=== PATIENT | male | born 1990 | race Caucasian/White ===

== ENCOUNTER 2016-05-13 16:31 | Emergency (ER) | payer MEDICAID ==
[2016-05-13] MEDS ORDERED: DEXAMETHASONE 10 MG/ML VIAL PO STA (16:53)
[2016-05-13] MEDS ORDERED: CHERRY SYRUP 10 ML UDC PO ONE (17:06)
[2016-05-13] MEDS ORDERED: DEXAMETHASONE 10 MG/ML VIAL ONE (17:06)
[2016-05-13] MEDS ORDERED: ACETAMINOPHEN 325 MG TABLET PO ONE (17:55)
== END 2016-05-13 17:54 | disposition home or self-care (01) ==
DX: J02.9 Acute pharyngitis, unspecified (principal); F17.200 Nicotine dependence, unspecified, uncomplicated
CPT/HCPCS: 87070; 87430; 99283; A9270

== ENCOUNTER 2016-11-10 11:16 | Outpatient (CLI) | payer SELFPAY ==
[2016-11-10 18:41] LABS: BASOPHILS % (AUTO) 0.5 %; EOSINOPHILS # (AUTO) 0.2 10^3/uL (0.0-0.7); EOSINOPHILS % (AUTO) 2.7 %; HCT - HEMATOCRIT 47.1 % (42.0-52.0); HGB - HEMOGLOBIN 15.5 g/dL (14.0-18.0); LYMPHOCYTES # (AUTO) 3.2 10^3/uL (1.5-3.5); MEAN CORPUSCULAR HEMOGLOBIN 29.5 pg (27.0-31.0); MEAN CORPUSCULAR HGB CONC 32.8 g/dL (32.0-36.0); MEAN CORPUSCULAR VOLUME 89.8 fL (80.0-94.0); MEAN PLATELET VOLUME 8.3 fL (7.4-11.4); MONOCYTES # (AUTO) 0.7 10^3/uL (0.0-1.0); MONOCYTES % (AUTO) 7.9 %; NEUTROPHILS # (AUTO) 4.1 10^3/uL (1.5-6.6); NEUTROPHILS % (AUTO) 49.9 %; NUCLEATED RED BLOOD CELLS AUTO 0.1 /100WBC; RED BLOOD COUNT 5.24 10^6/uL (4.70-6.10); UNCORRECTED WHITE BLOOD COUNT 8.3 x10^3/uL; WHITE BLOOD COUNT 8.3 x10^3/uL (4.8-10.8)
[2016-11-10 18:53] LABS: ALBUMIN/GLOBULIN RATIO 1.5 (1.0-2.2); BILIRUBIN,TOTAL 0.6 mg/dL (0.2-1.0); BUN - BLOOD UREA NITROGEN 13 mg/dL (6-20); CALCIUM 9.6 mg/dL (8.5-10.3); CARBON DIOXIDE - CO2 28 mmol/L (21-32); CHLORIDE 100 mmol/L (101-111); CHOL/HDL RATIO 3.6 (<5.0); CHOLESTEROL 173 mg/dL; CREATININE 0.9 mg/dL (0.6-1.2); GFR - MDRD 104 (>89); GLUCOSE 100 mg/dL (70-100); HDL CHOLESTEROL 48 mg/dL; LDL/HDL RATIO 2.4 (<3.6); POTASSIUM 3.7 mmol/L (3.5-5.0); SODIUM 137 mmol/L (135-145); TOTAL PROTEIN 7.9 g/dL (6.7-8.2); TRIGLYCERIDES 59 mg/dL; VLDL CHOLESTEROL 12 mg/dL
== END 2016-11-10 11:17 | disposition home or self-care (01) ==
LOC: LAB.N 11:16
PROVIDERS: ATTEND Physician Assistant
DX: F41.8 Other specified anxiety disorders (principal)
CPT/HCPCS: 36415; 80053; 80061; 84443; 85025

== ENCOUNTER 2017-02-12 16:51 | Emergency (ER) | payer BC ==
--- NOTE | 2017-02-12 16:55 | ED Physician Documentation ---
PD HPI HEENT - Stated complaint Stated Complaint: NAUSEA SORE THROAT - History obtained from History obtained from: Patient - History of Present Illness Timing - onset: How many weeks ago (2) Timing - duration: Weeks (2) Timing - details: Gradual onset, Still present (had had fevers, sore throat and swollen glands 2 weeks ago, lasted few days, and then improving but continues with hoarse voice and some sore throat. Hoarseness increasing the past 2-3 days. No fevers currently.) Location: Throat Improves: No: Medication (not with Tylenol or Ibuprofen) Worsens: Swalllowing Associated symptoms: Cough (mild). No: Fever, Unable to swallow (but hurts with swallowing), Facial swelling Recently seen: Not recently seen Review of Systems Constitutional: reports: Fever (2 weeks ago, not currently). denies: Chills, Myalgias Nose: denies: Rhinorrhea / runny nose, Congestion Throat: reports: Sore throat Respiratory: reports: Cough. denies: Dyspnea, Wheezing GI: reports: Nausea. denies: Abdominal Pain, Vomiting, Diarrhea Skin: denies: Rash, Lesions PD PAST MEDICAL HISTORY - Past Medical History Cardiovascular: None Respiratory: None Neuro: None Endocrine/Autoimmune: None GI: None : None HEENT: None Psych: Depression, Anxiety, Panic attacks Musculoskeletal: None Derm: None - Past Surgical History Past Surgical History: No General: Other - Present Medications Home Medications: Ambulatory Orders Medication Instructions Recorded Confirmed Propranolol [Inderal] 40 mg PO DAILY 06/25/15 02/12/17 hydrOXYzine PAMOATE [Vistaril] 50 mg PO DAILY 12/31/15 02/12/17 Cephalexin [Keflex] 500 mg PO QID #24 capsule 02/12/17 Citalopram [CeleXA] 02/12/17 Dexamethasone [Decadron] 4 mg PO DAILY #5 tablet 02/12/17 Ondansetron HCl [Zofran] 4 mg PO Q6H PRN #20 tablet 02/12/17 - Allergies Allergies/Adverse Reactions: Allergies Allergy/AdvReac Type Severity Reaction Status Date / Time gluten Allergy Unknown Verified 05/13/16 16:36 dairy Allergy Unknown Uncoded 05/13/16 16:36 - Social History Does the pt smoke?: Yes Smoking Status: Current some day smoker Does the pt drink ETOH?: Yes Does the pt have substance abuse?: No - Immunizations Immunizations are current?: Yes - POLST Patient has POLST: No PD ED PE NORMAL - Vitals Vital signs reviewed: Yes - General General: Alert and oriented X 3, Well developed/nourished - HEENT HEENT: Ears normal, Moist mucous membranes, Pharynx benign - Neck Neck: Supple, no meningeal sign, No adenopathy - Cardiac Cardiac: RRR, No murmur - Respiratory Respiratory: Clear bilaterally - Derm Derm: Normal color, Warm and dry, No rash, Other - Extremities Extremities: No tenderness to palpate, No edema - Neuro Neuro: Alert and oriented X 3, No motor deficit Results - Vitals Vitals: Oxygen O2 Source Room air PD MEDICAL DECISION MAKING - ED course Complexity details: considered differential (hoarse voice but has resolved other URI symptoms over a week ago. Treat with steroids/inhaler, but would have him see ENT if persistent symptoms for potential scope to ensure no lesions.), d /w patient Departure - Departure Disposition: 01 Home, Self Care Clinical Impression: Laryngitis Condition: Stable Record reviewed to determine appropriate education?: Yes Instructions: ED Laryngitis Follow-Up: [facility] [place] [Provider Group] Prescriptions: Cephalexin [Keflex] 500 mg PO QID #24 capsule Dexamethasone [Decadron] 4 mg PO DAILY #5 tablet Ondansetron HCl [Zofran] 4 mg PO Q6H PRN #20 tablet PRN Reason: Nausea / Vomiting Comments: Drink lots of fluids. Tylenol or ibuprofen if needed for fevers or pains. Decadron daily for 5 more days for inflammation/swelling. Cephalexin as directed for concern of bacterial infection given your duration of symptoms. Ondansetron if needed for nausea. Recheck if not improving over the next 3-4 days. If persistent symptoms then follow-up with your primary care or ENT in [place] with the possible thought of scoping the throat to look what it looks like down there. Discharge Date/Time: 02/12/17 17:59
[2017-02-12] MEDS ORDERED: ONDANSETRON ODT 4 MG TABLET TL STA (17:26)
[2017-02-12] MEDS ORDERED: cephALEXin 250 MG CAPSULE PO STA (17:26)
[2017-02-12] MEDS ORDERED: DEXAMETHASONE 10 MG/ML VIAL PO STA (17:26)
[2017-02-12] MEDS ORDERED: ACETAMINOPHEN 325 MG TABLET PO STA (17:27)
[2017-02-12] MEDS ORDERED: ACETAMINOPHEN 325 MG TABLET PO ONE (17:48)
[2017-02-12] MEDS ORDERED: CHERRY SYRUP 10 ML UDC PO ONE (17:48)
[2017-02-12] MEDS ORDERED: DEXAMETHASONE 10 MG/ML VIAL ONE (17:48)
[2017-02-12] MEDS ORDERED: cephALEXin 250 MG CAPSULE PO ONE (17:48)
[2017-02-12] MEDS ORDERED: ONDANSETRON ODT 4 MG TABLET ONE (17:48)
[2017-02-12 17:59] VITALS: BP 126/73
== END 2017-02-12 17:59 | disposition home or self-care (01) ==
LOC: ED 16:51
DX: J04.0 Acute laryngitis (principal); F17.200 Nicotine dependence, unspecified, uncomplicated
CPT/HCPCS: 99283; A9270; Q0162

== ENCOUNTER 2017-04-11 09:21 | Emergency (ER) | payer OTHER, BC ==
[2017-04-11] MEDS ORDERED: IBUPROFEN 400 MG TABLET PO STA (10:24)
[2017-04-11] MEDS ORDERED: LIDOCAINE PATCH 5% TOP STA (10:24)
[2017-04-11 11:02] VITALS: BP 132/81
--- NOTE | 2017-04-11 11:42 | ED Physician Documentation ---
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 location reinjured moving gheavy items recently no direct blow no pop pain to R shoulder with ROM thinks rotator cuff L&I Review of Systems Musculoskeletal: reports: Joint pain PD PAST MEDICAL HISTORY - Past Medical History Cardiovascular: None Respiratory: None Neuro: None Endocrine/Autoimmune: None GI: None : None HEENT: None Psych: Depression, Anxiety, Panic attacks Musculoskeletal: None Derm: None - Past Surgical History Past Surgical History: No General: Other - Present Medications Home Medications: Ambulatory Orders Medication Instructions Recorded Confirmed Propranolol [Inderal] 40 mg PO DAILY 06/25/15 04/11/17 hydrOXYzine PAMOATE [Vistaril] 50 mg PO DAILY 12/31/15 04/11/17 Citalopram [CeleXA] 1 tab PO DAILY 02/12/17 04/11/17 Ibuprofen [Motrin] 400 mg PO Q6H PRN #30 tablet 04/11/17 - Allergies Allergies/Adverse Reactions: Allergies Allergy/AdvReac Type Severity Reaction Status Date / Time gluten Allergy Unknown Verified 05/13/16 16:36 dairy Allergy Unknown Uncoded 05/13/16 16:36 - Social History Does the pt smoke?: Yes Smoking Status: Current every day smoker Does the pt drink ETOH?: Yes Does the pt have substance abuse?: No - Immunizations Immunizations are current?: Yes - POLST Patient has POLST: No PD ED PE NORMAL - Vitals Vital signs reviewed: Yes - HEENT HEENT: Atraumatic - Cardiac Cardiac: RRR - Respiratory Respiratory: No respiratory distress, Clear bilaterally - Extremities Extremities: Other (R shoulder s deformity redness warmth, TTP primarily anterior, limited ROM jevon ABD past 90, MSV intact) Results - Vitals Vitals: Vital Signs - 24 hr 04/11/17 04/11/17 09:33 11:02 Temperature 36.3 C L 37.2 C Heart Rate 71 72 Respiratory 16 18 Rate Blood Pressure 131/85 H 132/81 H O2 Saturation 100 98 Oxygen O2 Source Room air Departure - Departure Disposition: 01 Home, Self Care Clinical Impression: Rotator cuff (capsule) sprain Qualifiers: Encounter type: initial encounter Laterality: right Qualified Code(s): S43.421A - Sprain of right rotator cuff capsule, initial encounter Condition: Good Instructions: ED Tendinitis Rotator Cuff Follow-Up: [facility] [Provider Group] Prescriptions: Ibuprofen [Motrin] 400 mg PO Q6H PRN #30 tablet PRN Reason: Pain Comments: Your history and exam suggest a rotator cuff injury Recommend motrin and ice to decrease the inflammation and pain Wear the sling for comfort but do the range of motion exercises that I showed you. No lifting or using that arm for overhead activities Call you insurance company for physical therapy And follow up with orthopedics for further evaluation and care if not better with a week of rest Forms: Activity restrictions
== END 2017-04-11 11:46 | disposition home or self-care (01) ==
LOC: ED 09:21
DX: S43.421A Sprain of right rotator cuff capsule, initial encounter (principal); X50.0XXA Overexertion from strenuous movement or load, initial encounter; F17.200 Nicotine dependence, unspecified, uncomplicated
CPT/HCPCS: 1040M; 99283; A9270

== ENCOUNTER 2017-06-28 14:14 | Outpatient (CLI) | payer OTHER, BC ==
--- NOTE | 2017-06-28 22:06 | MRI Report ---
EXAM: RIGHT SHOULDER MRI WITHOUT CONTRAST EXAM DATE: 06/28/2017 03:02 PM. CLINICAL HISTORY: Right rotator cuff strain. Chronic right shoulder pain for 3 months after lifting b oxes. COMPARISON: Left shoulder radiography from 05/03/2017. TECHNIQUE: Multiplanar, multisequence T1-weighted and fluid-sensitive sequences of the shoulder witho ut contrast. Other: None. FINDINGS: Acromioclavicular Region: The acromion is type I. The acromioclavicular joint is unremarkable. The co racoacromial and coracoclavicular ligaments are intact. No subacromial/subdeltoid bursal fluid. Glenohumeral Region: No subluxation. No effusion or loose bodies. The articular cartilage is unremark able. The glenohumeral ligaments and joint capsule are unremarkable. Bone Marrow: There is an approximately 1 x 0.5 x 0.3 cm mildly lobular intramedullary lesion at the p roximal humeral metaphysis, which is mostly hyperintense on the T2-weighted images and slightly hyper intense on T1-weighted images. No surrounding marrow edema. No acute fracture. Labrum: The labrum is unremarkable on this nonarthrographic study. Musculature/Rotator Cuff: The supraspinatus, infraspinatus, and teres minor tendons are intact. There is an approximately 2.2 cm medial to lateral by 0.3 cm superior to inferior partial-thickness intras ubstance tear at the distal superior aspect of the subscapularis tendon. The tear involves approximat [place] 80% of the tendon thickness at this location. No edema or fatty atrophy. Biceps Tendon: The long head of the biceps tendon and biceps dawood are intact. Other: The subcutaneous tissues are unremarkable. There is an approximately 1.1 x 0.8 x 0.6 cm gangli on or synovial cyst adjacent to the anterior aspect of the glenoid. IMPRESSION: 1. A 2.2 x 0.3 cm high-grade partial-thickness intrasubstance tear at the distal superior aspect of t he subscapularis tendon. 2. A 1.0 x 0.5 x 0.3 cm mildly lobular intramedullary lesion at the proximal humeral metaphysis. Diff erential may include an enchondroma, cyst or hemangioma. 3. A 1.1 x 0.8 x 0.6 cm ganglion or synovial cyst adjacent to the anterior aspect of the glenoid. [facility] Referring Provider Line: [phone] SITE ID: [id number]
== END 2017-06-28 14:15 | disposition home or self-care (01) ==
LOC: DI 14:14
PROVIDERS: ATTEND Orthopaedic Surgery
DX: M75.101 Unspecified rotator cuff tear or rupture of right shoulder, not specified as traumatic (principal); M89.8X2 Other specified disorders of bone, upper arm; M25.811 Other specified joint disorders, right shoulder

== ENCOUNTER 2017-09-08 12:37 | Outpatient (CLI) | payer OTHER ==
[~2017-09-08 12:37] MED LIST: GADOPENTETATE DIMEGLUMINE 5 ML VIAL IVP ONE; IOTHALAMATE MEGLUMINE 50 ML VIAL ONE
[2017-09-08] MEDS ORDERED: IOTHALAMATE MEGLUMINE 50 ML VIAL IVP ONE (13:52)
[2017-09-08] MEDS ORDERED: GADOPENTETATE DIMEGLUMINE 5 ML VIAL IVP ONE (13:52)
[2017-09-08] MEDS ORDERED: BUFFERED LIDOCAINE 10 ML SYRINGE IU ONE (13:52)
--- NOTE | 2017-09-08 14:46 | XRAY Report ---
FLUOROSCOPICALLY-GUIDED RIGHT SHOULDER INJECTION FOR MR ARTHROGRAM: 09/08/2017 CLINICAL INDICATION: Labral tear. TECHNIQUE/FINDINGS: Following obtaining informed consent, the patient's right shoulder was prepped and draped in the usual sterile fashion. The skin and soft tissues were anesthetized with lidocaine. A spinal needle was inserted into the right glenohumeral joint, and following confirmation of needle positioning, a combination of iodinated contrast, dilute gadolinium, and lidocaine was injected intraarticularly. The patient tolerated the procedure well. No immediate complications. Spot image reveals no evidence of contrast extravasation. IMPRESSION: SUCCESSFUL RIGHT SHOULDER INJECTION FOR MR ARTHROGRAM. FLUOROSCOPY TIME: 34 seconds; one spot image obtained. TD: 09/08/2017 14:29
--- NOTE | 2017-09-09 10:55 | MRI Report ---
EXAM: RIGHT SHOULDER MRI ARTHROGRAM WITH CONTRAST EXAM DATE: 09/08/2017 02:32 PM. CLINICAL HISTORY: Evaluate for right shoulder labrum tear. COMPARISON: MRI right shoulder 06/28/2017. TECHNIQUE: Multiplanar, multisequence T1-weighted and fluid-sensitive sequences of the shoulder after an arthrographic injection of dilute gadolinium, dictated under a separate exam. Other: None. FINDINGS: Acromioclavicular Region: The acromion is type 1. The acromioclavicular joint is unremarkable. The co racoacromial and coracoclavicular ligaments are intact. There is no contrast or fluid in the subacrom ial/subdeltoid bursa. Glenohumeral Region: No subluxation. No loose bodies. The articular cartilage is unremarkable. The gl enohumeral ligaments and joint capsule are unremarkable. Bone Marrow: No fracture, marrow edema or bone lesions. Labrum: The labrum is unremarkable. Biceps Tendon: The long head of the biceps tendon and biceps dawood are intact. Musculature/Rotator Cuff: Negative for supraspinatus tendon tear. Negative for infraspinatus tendon t ear. Rotator cuff muscles are negative for edema or atrophy. There is extensive longitudinal intersti tial tear subscapularis tendon at least 4 cm in length and upwards to 89% thickness without change as compared to the MRI 06/28/2017. Other: Contrast is seen within the anterior glenoid cyst described on the MRI 06/28/2017. IMPRESSION: 1. No definite labrum tear. 2. Extensive longitudinal interstitial tear subscapularis tendon as previously described. [facility] Referring Provider Line: [phone] SITE ID: [id number]
== END 2017-09-08 12:38 | disposition home or self-care (01) ==
LOC: DI 12:37
PROVIDERS: ATTEND Orthopaedic Surgery
DX: M71.311 Other bursal cyst, right shoulder (principal); S46.811A Strain of other muscles, fascia and tendons at shoulder and upper arm level, right arm, initial encounter
CPT/HCPCS: 23350; 73222; 77002; Q9961

== ENCOUNTER 2017-09-29 14:20 | Outpatient (CLI) | payer BC, MEDICAID ==
[2017-09-29 18:58] LABS: BASOPHILS % (AUTO) 0.2 %; EOSINOPHILS # (AUTO) 0.1 10^3/uL (0.0-0.7); EOSINOPHILS % (AUTO) 0.8 %; HGB - HEMOGLOBIN 15.7 g/dL (14.0-18.0); LYMPHOCYTES # (AUTO) 2.9 10^3/uL (1.5-3.5); MEAN CORPUSCULAR HGB CONC 33.2 g/dL (32.0-36.0); MEAN CORPUSCULAR VOLUME 90.4 fL (80.0-94.0); MEAN PLATELET VOLUME 8.5 fL (7.4-11.4); MONOCYTES # (AUTO) 0.9 10^3/uL (0.0-1.0); MONOCYTES % (AUTO) 8.4 %; NEUTROPHILS # (AUTO) 6.5 10^3/uL (1.5-6.6); NEUTROPHILS % (AUTO) 62.6 %; PLT - PLATELET COUNT 303 10^3/uL (130-450); RED BLOOD COUNT 5.22 10^6/uL (4.70-6.10); RED CELL DISTRIBUTION WIDTH 13.3 % (12.0-15.0); WHITE BLOOD COUNT 10.4 x10^3/uL (4.8-10.8)
[2017-09-29 19:17] LABS: ALBUMIN 4.6 g/dL (3.2-5.5); ALBUMIN/GLOBULIN RATIO 1.2 (1.0-2.2); ALKALINE PHOSPHATASE 59 IU/L (42-121); ALT ALANINE AMINOTRANSFERASE 65 IU/L (10-60); AST ASPARTATE AMINOTRANSFERASE 28 IU/L (10-42); BILIRUBIN,TOTAL 0.7 mg/dL (0.2-1.0); BUN - BLOOD UREA NITROGEN 22 mg/dL (6-20); CALCIUM 9.7 mg/dL (8.5-10.3); CARBON DIOXIDE - CO2 27 mmol/L (21-32); CHLORIDE 105 mmol/L (101-111); CHOL/HDL RATIO 3.3 (<5.0); CHOLESTEROL 154 mg/dL; CREATININE 0.6 mg/dL (0.6-1.2); GFR - MDRD 164 (>89); GLUCOSE 85 mg/dL (70-100); HDL CHOLESTEROL 47 mg/dL; LDL CHOLESTEROL,CALCULATED 88 mg/dL; LDL/HDL RATIO 1.9 (<3.6); SODIUM 140 mmol/L (135-145); TOTAL PROTEIN 8.5 g/dL (6.7-8.2); VLDL CHOLESTEROL 19 mg/dL
== END 2017-09-29 14:21 | disposition home or self-care (01) ==
LOC: LAB.N 14:20
PROVIDERS: ATTEND Nurse Practitioner Gerontology
DX: Z13.9 Encounter for screening, unspecified (principal)
CPT/HCPCS: 36415; 80053; 80061; 83721; 84443; 85025

== ENCOUNTER 2018-12-20 08:00 | Outpatient (CLI) | payer MEDICAID ==
[2018-12-20 18:54] LABS: BASOPHILS % (AUTO) 0.4 %; EOSINOPHILS # (AUTO) 0.2 10^3/uL (0.0-0.7); EOSINOPHILS % (AUTO) 2.4 %; HGB - HEMOGLOBIN 15.6 g/dL (14.0-18.0); LYMPHOCYTES # (AUTO) 2.9 10^3/uL (1.5-3.5); LYMPHOCYTES % (AUTO) 34.6 %; MEAN CORPUSCULAR HEMOGLOBIN 29.1 pg (27.0-31.0); MEAN CORPUSCULAR HGB CONC 31.5 g/dL (32.0-36.0); MEAN CORPUSCULAR VOLUME 92.2 fL (80.0-94.0); MEAN PLATELET VOLUME 10.7 fL (7.4-11.4); MONOCYTES # (AUTO) 0.7 10^3/uL (0.0-1.0); MONOCYTES % (AUTO) 8.8 %; NEUTROPHILS # (AUTO) 4.5 10^3/uL (1.5-6.6); NEUTROPHILS % (AUTO) 53.4 %; PLT - PLATELET COUNT 269 10^3/uL (130-450); RED BLOOD COUNT 5.37 10^6/uL (4.70-6.10); RED CELL DISTRIBUTION WIDTH 12.9 % (12.0-15.0); WHITE BLOOD COUNT 8.4 x10^3/uL (4.8-10.8)
[2018-12-20 19:11] LABS: ALBUMIN 5.1 g/dL (3.2-5.5); ALBUMIN/GLOBULIN RATIO 1.6 (1.0-2.2); BILIRUBIN,TOTAL 0.8 mg/dL (0.2-1.0); CALCIUM 9.6 mg/dL (8.5-10.3); CREATININE 0.9 mg/dL (0.6-1.2); TOTAL PROTEIN 8.3 g/dL (6.7-8.2)
[2018-12-20 20:03] LABS: H. PYLORIS ANTIGEN STL NEGATIVE (Negative)
== END 2018-12-20 23:59 | disposition home or self-care (01) ==
LOC: LAB.N 08:00
PROVIDERS: ATTEND Family Medicine
DX: R10.9 Unspecified abdominal pain (principal)
CPT/HCPCS: 36415; 80053; 82150; 83690; 85025; 87338; 87493

== ENCOUNTER 2018-12-20 10:37 | Outpatient (CLI) | payer MEDICAID ==
--- NOTE | 2018-12-20 15:58 | XRAY Report ---
Reason: ABD DISCOMFORT Procedure Date: 12/20/2018 Accession Number: [id number] / [id number] Procedure: XRN - Abdomen Acute CPT Code: FULL RESULT: EXAM: ABDOMINAL SERIES AND PA CHEST EXAM DATE: 12/20/2018 11:03 AM. CLINICAL HISTORY: ABD DISCOMFORT. COMPARISON: CHEST 2 VIEW PA/LAT 12/31/2015 3:17 PM. TECHNIQUE: 2 views abdomen and 1 view chest. FINDINGS: CHEST: Lungs/Pleura: No focal opacities. No effusion or pneumothorax. Mediastinum: Within exam limitations, cardiomediastinal contour is normal. ABDOMEN: Bowel Gas Pattern: Within normal limits. No dilated loops or abnormal fluid levels. Free Air: None. Other: None. IMPRESSION: Normal abdominal series (including 1-view chest). [facility]
== END 2018-12-20 10:38 | disposition home or self-care (01) ==
LOC: DI.N 10:37
PROVIDERS: ATTEND Family Medicine
DX: R10.9 Unspecified abdominal pain (principal)
CPT/HCPCS: 74022

== ENCOUNTER 2019-01-05 14:09 | Emergency (ER) | payer MEDICAID ==
[2019-01-05 14:17] VITALS: BP 129/84
--- NOTE | 2019-01-05 14:29 | ED Physician Documentation ---
PD HPI ABD PAIN - Stated complaint Stated Complaint: NAUSEA - Chief complaint Chief Complaint: Abd Pain - History obtained from History obtained from: Patient - History of Present Illness Timing - onset: Last night (He takes Lamictal for bipolar disorder. Since starting that he often has nausea and occasional vomiting related to it. Last night was particularly bad. He has not taken anything for the nausea. Its associate with some mild lower abdominal pain uses marijuana but only very occasionally. Certainly not daily. He notes that on days where he does not take his Lamictal he feels much better and the nausea is gone. He has an appointment with his prescriber at [facility] to discuss this, but would like to stop the Lamictal in the interim and have something for the nausea.This is been going on for about 2 months.) Review of Systems Constitutional: denies: Fever, Chills, Fatigue, Weight Loss Cardiac: denies: Chest pain / pressure, Palpitations Respiratory: denies: Dyspnea, Cough GI: reports: Nausea, Vomiting, Constipation, Diarrhea PD PAST MEDICAL HISTORY - Past Medical History Cardiovascular: None Respiratory: None Endocrine/Autoimmune: None GI: None : None HEENT: None Psych: Depression, Anxiety, Panic attacks Musculoskeletal: None Derm: None - Past Surgical History Past Surgical History: No General: Other - Present Medications Home Medications: Ambulatory Orders Medication Instructions Recorded Confirmed Propranolol [Inderal] 40 mg PO DAILY 06/25/15 04/11/17 hydrOXYzine PAMOATE [Vistaril] 50 mg PO DAILY 12/31/15 04/11/17 Citalopram [CeleXA] 1 tab PO DAILY 02/12/17 04/11/17 Ibuprofen [Motrin] 400 mg PO Q6H PRN #30 tablet 04/11/[address] [Rayray Luis] 500 mg PO DAILY #14 tablet 01/05/19 Ondansetron Odt [Zofran] 4 mg TL Q6H PRN #20 tablet 01/05/19 - Allergies Allergies/Adverse Reactions: Allergies Allergy/AdvReac Type Severity Reaction Status Date / Time gluten Allergy Unknown Verified 05/13/16 16:36 dairy Allergy Unknown Uncoded 05/13/16 16:36 - Social History Does the pt smoke?: Yes Smoking Status: Current every day smoker Does the pt drink ETOH?: Yes Does the pt have substance abuse?: No - Immunizations Immunizations are current?: Yes - POLST Patient has POLST: No PD ED PE NORMAL - Vitals Vital signs reviewed: Yes - General General: Alert and oriented X 3, No acute distress - Abdomen Abdomen: Normal bowel sounds, Soft, Non tender - Neuro Neuro: Alert and oriented X 3, Normal speech - Psych Psych: Normal mood, Normal affect Results - Vitals Vitals: Vital Signs - 24 hr 01/05/19 14:14 Temperature 36.8 C Heart Rate 78 Respiratory 16 Rate Blood Pressure 129/84 H O2 Saturation 100 Oxygen O2 Source Room air PD MEDICAL DECISION MAKING - ED course ED course: 28-year-old gentleman with subacute nausea and vomiting that is temporally related to Lamictal use. He notes that on days that he does not take Lamictal his nausea is much better. He would like to stop Lamictal but is worried about breakthrough seizures and manic issues. In the past he was on Abilify for a mood stabilizer but that made him excessively sedated. Seems reasonable to trial another mood stabilizer that is not so sedating, I am prescribing Depakote pending his follow-up next week with his prescriber. Also some Zofran for the nausea. He also needed a work note. Departure - Departure Disposition: 01 Home, Self Care Clinical Impression: Nausea, Medication side effect Condition: Good Record reviewed to determine appropriate education?: Yes Instructions: ED Nausea Vomiting Prescriptions: Divalproex Dr [Depakote Dr] 500 mg PO DAILY #14 tablet Ondansetron Odt [Zofran] 4 mg TL Q6H PRN #20 tablet PRN Reason: Nausea / Vomiting Comments: Follow-up with your prescriber at [facility] within the week, return for new or worsening symptoms. Forms: Activity restrictions
== END 2019-01-05 14:38 | disposition home or self-care (01) ==
LOC: ED 14:09
DX: R11.2 Nausea with vomiting, unspecified (principal); T42.6X5A Adverse effect of other antiepileptic and sedative-hypnotic drugs, initial encounter; F31.9 Bipolar disorder, unspecified; F17.200 Nicotine dependence, unspecified, uncomplicated
CPT/HCPCS: 99282; 99283

== ENCOUNTER 2019-01-16 11:39 | Emergency (ER) | payer MEDICAID ==
[2019-01-16 11:49] VITALS: BP 143/93
--- NOTE | 2019-01-16 12:42 | ED Physician Documentation ---
History of Present Illness - Stated complaint Stated Complaint: WORK NOTE/FOR FLU - Chief complaint Chief Complaint: General - History obtained from History obtained from: Patient - History of Present Illness Timing: Other (Got sick about 5 days ago with fevers, chills, congestion, body aches. He is much better now, has not had a fever in about 2 days but needs a note that says he can return to work.) Review of Systems Constitutional: reports: Myalgias. denies: Fever, Chills Ears: denies: Loss of hearing, Drainage/discharge Nose: reports: Congestion. denies: Rhinorrhea / runny nose Throat: denies: Sore throat PD PAST MEDICAL HISTORY - Past Medical History Past Medical History: Yes Cardiovascular: None Respiratory: None Neuro: None Endocrine/Autoimmune: None GI: None : None HEENT: None Psych: Depression, Anxiety, Panic attacks Musculoskeletal: None Derm: None - Past Surgical History Past Surgical History: Yes General: Other Ortho: Shoulder arthroplasty - Present Medications Home Medications: Ambulatory Orders Medication Instructions Recorded Confirmed Divalproex Sodium [Depakote] 500 mg PO 01/16/19 01/16/19 - Allergies Allergies/Adverse Reactions: Allergies Allergy/AdvReac Type Severity Reaction Status Date / Time gluten Allergy Unknown Verified 01/16/19 11:48 dairy Allergy Unknown Uncoded 01/16/19 11:48 - Social History Does the pt smoke?: Yes Smoking Status: Current every day smoker Does the pt drink ETOH?: Yes Does the pt have substance abuse?: Yes Substance Use and Type: Marijuana - Immunizations Immunizations are current?: Yes - POLST Patient has POLST: No PD ED PE NORMAL - Vitals Vital signs reviewed: Yes - General General: Alert and oriented X 3, No acute distress - HEENT HEENT: Ears normal, Pharynx benign - Neck Neck: Supple, no meningeal sign, No bony TTP - Cardiac Cardiac: RRR, No murmur - Respiratory Respiratory: Clear bilaterally - Abdomen Abdomen: Non tender - Derm Derm: No rash - Extremities Extremities: No deformity, No tenderness to palpate - Neuro Neuro: Alert and oriented X 3, Normal speech Results - Vitals Vitals: Vital Signs - 24 hr 01/16/19 11:46 Temperature 36.5 C Heart Rate 86 Respiratory 18 Rate Blood Pressure 143/93 H O2 Saturation 100 Oxygen O2 Source Room air Departure - Departure Disposition: 01 Home, Self Care Clinical Impression: Viral syndrome Condition: Good Record reviewed to determine appropriate education?: Yes Instructions: ED Viral Syndrome Comments: Your blood pressure was elevated today on check into the emergency department. This does not mean that you have hypertension, it is a common phenomenon to come to the emergency department and have elevated blood pressure. I recommend that you see your primary care physician within the week to have it rechecked when you are feeling better. Forms: Activity restrictions
== END 2019-01-16 13:03 | disposition home or self-care (01) ==
LOC: ED 11:39
DX: B34.9 Viral infection, unspecified (principal); R03.0 Elevated blood-pressure reading, without diagnosis of hypertension; F17.200 Nicotine dependence, unspecified, uncomplicated
CPT/HCPCS: 99281; 99282

== ENCOUNTER 2019-02-13 13:47 | Outpatient (CLI) | payer MEDICAID ==
[2019-02-13 18:58] LABS: BASOPHILS % (AUTO) 0.4 %; EOSINOPHILS # (AUTO) 0.3 10^3/uL (0.0-0.7); EOSINOPHILS % (AUTO) 3.9 %; HGB - HEMOGLOBIN 15.2 g/dL (14.0-18.0); LYMPHOCYTES # (AUTO) 2.6 10^3/uL (1.5-3.5); LYMPHOCYTES % (AUTO) 35.5 %; MEAN CORPUSCULAR HEMOGLOBIN 28.7 pg (27.0-31.0); MEAN CORPUSCULAR HGB CONC 31.3 g/dL (32.0-36.0); MEAN CORPUSCULAR VOLUME 91.7 fL (80.0-94.0); MEAN PLATELET VOLUME 11.1 fL (7.4-11.4); MONOCYTES # (AUTO) 0.6 10^3/uL (0.0-1.0); MONOCYTES % (AUTO) 7.6 %; NEUTROPHILS # (AUTO) 3.9 10^3/uL (1.5-6.6); NEUTROPHILS % (AUTO) 52.3 %; PLT - PLATELET COUNT 272 10^3/uL (130-450); RED BLOOD COUNT 5.29 10^6/uL (4.70-6.10); WHITE BLOOD COUNT 7.4 x10^3/uL (4.8-10.8)
[2019-02-13 19:37] LABS: HB2 TOTAL 16.1 g/dL; HEMOGLOBIN A1C 0.55 g/dL; HEMOGLOBIN A1C % 5.3 % (4.6-6.2)
[2019-02-13 19:44] LABS: T4 (THYROXINE) 7.52 ug/dL (6.09-12.23)
[2019-02-13 19:45] LABS: THYROID STIMULATING HORMONE 0.95 uIU/mL (0.34-5.60)
[2019-02-13 19:52] LABS: TOTAL T3 1.24 ng/mL (0.87-1.78)
[2019-02-13 19:54] LABS: ALBUMIN 4.6 g/dL (3.2-5.5); ALBUMIN/GLOBULIN RATIO 1.4 (1.0-2.2); ALKALINE PHOSPHATASE 44 IU/L (42-121); ALT ALANINE AMINOTRANSFERASE 27 IU/L (10-60); AST ASPARTATE AMINOTRANSFERASE 19 IU/L (10-42); BILIRUBIN,DIRECT 0.1 mg/dL (0.1-0.5); BILIRUBIN,TOTAL 0.7 mg/dL (0.2-1.0); BUN - BLOOD UREA NITROGEN 16 mg/dL (6-20); CALCIUM 9.6 mg/dL (8.5-10.3); CARBON DIOXIDE - CO2 30 mmol/L (21-32); CHLORIDE 104 mmol/L (101-111); CHOL/HDL RATIO 3.6 (<5.0); CHOLESTEROL 142 mg/dL; CREATININE 0.7 mg/dL (0.6-1.2); GFR - MDRD 136 (>89); GLUCOSE 89 mg/dL (70-100); GLUCOSE,FASTING 89 mg/dL (70-100); HDL CHOLESTEROL 40 mg/dL; LDL CHOLESTEROL,CALCULATED 84 mg/dL; LDL/HDL RATIO 2.1 (<3.6); SODIUM 142 mmol/L (135-145); TOTAL PROTEIN 7.8 g/dL (6.7-8.2); VALPROIC ACID (DEPAKOTE) 50.1 ug/mL; VLDL CHOLESTEROL 18 mg/dL
[2019-02-13 19:57] LABS: FOLATE 3.92 ng/mL (5.90 - >24.8)
== END 2019-02-13 23:59 ==
LOC: LAB.N 13:47
PROVIDERS: ATTEND Psychiatry & Neurology Psychiatry
DX: F31.12 Bipolar disorder, current episode manic without psychotic features, moderate (principal); F33.1 Major depressive disorder, recurrent, moderate
CPT/HCPCS: 36415; 80053; 80061; 80164; 81599; 82248; 82607; 82746; 82947; 83036; 83721; 84436; 84442; 84443; 84480; 85025

== ENCOUNTER 2020-02-27 14:29 | Outpatient (CLI) | payer MEDICAID ==
--- NOTE | 2020-02-27 16:00 | XRAY Report ---
PROCEDURE: Thoracic Spine 3 View INDICATIONS: BACK PAIN,CHRONIC TECHNIQUE: 3 views of the thoracic spine were acquired. COMPARISON: None. FINDINGS: Bones: No fractures or dislocations. No suspicious bony lesions. 12 pairs of ribs are noted, and a ppear intact where visualized. Mild degenerative disc changes noted in the mid thoracic spine. Soft tissues: No paravertebral stripe thickening. IMPRESSION: 1. Mild multilevel degenerative disease. 2. No fracture. No acute osseous lesion. If there is continued clinical concern for pathology, then M RI should be considered for further evaluation.. Reviewed by: Mariela Nicholson MD, PhD on 02/27/2020 3:58 PM PST Approved by: Mariela Nicholson MD, PhD on 02/27/2020 3:58 PM PST Station ID: [id number]
--- NOTE | 2020-02-27 16:02 | XRAY Report ---
PROCEDURE: Lumbar Spine Complete INDICATIONS: BACK PAIN,CHRONIC TECHNIQUE: 4 views of the lumbar spine were acquired. COMPARISON: None. FINDINGS: Bones: 5 [id number] vertebrae are present. There is normal bony alignment. No vertebral body compression fractures. No suspicious bony lesions. Mild L1-L2, L2-L3 and L3-L4 degenerative disc dis ease. Soft tissues: Overlying bowel gas pattern is normal. No suspicious soft tissue calcifications. Obliques: No pars interarticularis defects. IMPRESSION: 1. Mild multilevel degenerative disease. 2. No fracture. No acute osseous lesion. If there is continued clinical concern for pathology, then M RI should be considered for further evaluation. Reviewed by: Mariela Nicholson MD, PhD on 02/27/2020 4:00 PM PST Approved by: Mariela Nicholson MD, PhD on 02/27/2020 4:00 PM PST Station ID: [id number]
== END 2020-02-27 14:30 | disposition home or self-care (01) ==
LOC: DI 14:29
PROVIDERS: ATTEND Internal Medicine
DX: M51.36 Other intervertebral disc degeneration, lumbar region (principal); M51.34 Other intervertebral disc degeneration, thoracic region
CPT/HCPCS: 72072; 72110

== ENCOUNTER 2020-03-31 11:00 | Outpatient (CLI) | payer MEDICAID | END 2020-03-31 11:01 | disposition home or self-care (01) | LOC: LAB.N 11:00 | PROVIDERS: ATTEND Family Medicine | DX: Z53.9 Procedure and treatment not carried out, unspecified reason (principal) | CPT/HCPCS: 36415; 80053; 80164; 81599; 82390; 83516; 84443; 85025; 86038; 86376 ==

== ENCOUNTER 2020-04-07 10:57 | Outpatient (CLI) | payer MEDICAID ==
[2020-04-07 19:07] LABS: BASOPHILS % (AUTO) 0.5 %; EOSINOPHILS # (AUTO) 0.2 10^3/uL (0.0-0.7); EOSINOPHILS % (AUTO) 2.7 %; HGB - HEMOGLOBIN 15.6 g/dL (14.0-18.0); LYMPHOCYTES # (AUTO) 3.6 10^3/uL (1.5-3.5); LYMPHOCYTES % (AUTO) 42.3 %; MEAN CORPUSCULAR HGB CONC 32.2 g/dL (32.0-36.0); MEAN CORPUSCULAR VOLUME 93.1 fL (80.0-94.0); MEAN PLATELET VOLUME 10.9 fL (7.4-11.4); MONOCYTES # (AUTO) 0.5 10^3/uL (0.0-1.0); MONOCYTES % (AUTO) 6.3 %; NEUTROPHILS # (AUTO) 4.1 10^3/uL (1.5-6.6); NEUTROPHILS % (AUTO) 47.7 %; PLT - PLATELET COUNT 303 10^3/uL (130-450); RED CELL DISTRIBUTION WIDTH 12.3 % (12.0-15.0); WHITE BLOOD COUNT 8.5 x10^3/uL (4.8-10.8)
[2020-04-07 19:24] LABS: ALBUMIN 4.8 g/dL (3.2-5.5); ALBUMIN/GLOBULIN RATIO 1.4 (1.0-2.2); ALKALINE PHOSPHATASE 40 IU/L (42-121); ALT ALANINE AMINOTRANSFERASE 50 IU/L (10-60); AST ASPARTATE AMINOTRANSFERASE 22 IU/L (10-42); BILIRUBIN,TOTAL 0.8 mg/dL (0.2-1.0); BUN - BLOOD UREA NITROGEN 16 mg/dL (6-20); CALCIUM 9.9 mg/dL (8.5-10.3); CARBON DIOXIDE - CO2 25 mmol/L (21-32); CHLORIDE 105 mmol/L (101-111); CREATININE 0.8 mg/dL (0.6-1.2); GLUCOSE 92 mg/dL (70-100); SODIUM 140 mmol/L (135-145); TOTAL PROTEIN 8.2 g/dL (6.7-8.2); VALPROIC ACID (DEPAKOTE) 44.2 ug/mL
[2020-04-09 09:47] LABS: ANA SCREEN NEGATIVE (NEGATIVE)
[2020-04-11 05:42] LABS: LIVER KIDNEY MICROSOME AB <20.0 U
== END 2020-04-07 10:58 | disposition home or self-care (01) ==
LOC: LAB.N 10:57
PROVIDERS: ATTEND Family Medicine
DX: F31.81 Bipolar II disorder (principal); R10.9 Unspecified abdominal pain; E73.9 Lactose intolerance, unspecified; K58.9 Irritable bowel syndrome, unspecified
CPT/HCPCS: 36415; 80053; 80164; 81332; 81599; 82390; 83516; 84443; 85025; 86038; 86255; 86376

== ENCOUNTER 2020-07-11 08:00 | Outpatient (CLI) | payer MEDICAID ==
[2020-07-11 12:14] LABS: BASOPHILS % (AUTO) 0.3 %; EOSINOPHILS % (AUTO) 1.5 %; HCT - HEMATOCRIT 48.5 % (42.0-52.0); HGB - HEMOGLOBIN 16.1 g/dL (14.0-18.0); MEAN CORPUSCULAR HEMOGLOBIN 30.4 pg (27.0-31.0); MEAN CORPUSCULAR HGB CONC 33.2 g/dL (32.0-36.0); MEAN CORPUSCULAR VOLUME 91.7 fL (80.0-94.0); MEAN PLATELET VOLUME 10.6 fL (7.4-11.4); MONOCYTES % (AUTO) 7.5 %; NEUTROPHILS % (AUTO) 52.3 %; PLT - PLATELET COUNT 350 10^3/uL (130-450); RED BLOOD COUNT 5.29 10^6/uL (4.70-6.10); RED CELL DISTRIBUTION WIDTH 12.2 % (12.0-15.0); WHITE BLOOD COUNT 14.4 x10^3/uL (4.8-10.8)
[2020-07-11 12:18] LABS: SLIDE REVIEW? Indicated
[2020-07-11 12:19] LABS: ABNORMAL LYMPHS % (MANUAL) 0 %; BAND NEUTROPHILS % (MANUAL) 0 %
[2020-07-11 12:40] LABS: ALBUMIN 4.7 g/dL (3.2-5.5); ALBUMIN/GLOBULIN RATIO 1.4 (1.0-2.2); BILIRUBIN,TOTAL 0.7 mg/dL (0.2-1.0); CALCIUM 9.3 mg/dL (8.5-10.3); CREATININE 0.9 mg/dL (0.6-1.2); POTASSIUM 3.5 mmol/L (3.5-5.0)
[2020-07-11 14:07] LABS: DIFFERENTIAL COMMENT MANUAL DIFFERENTIAL; EOSINOPHILS # (MANUAL) 0.1 10^3/uL (0-0.7); LYMPHOCYTES # (MANUAL) 7.5 10^3/uL (1.5-3.5); LYMPHOCYTES % (MANUAL) 40 %; MONOCYTES # (MANUAL) 1.2 10^3/uL (0.0-1.0); NEUTROPHILS # (MANUAL) 5.6 10^3/uL (1.5-6.6); PLATELET ESTIMATE, MANUAL NORMAL (130-450,000) (NORMAL); PLATELET MORPHOLOGY RARE GIANT PLATELETS (NORMAL); RBC MORPHOLOGY (MULTIPLE) NORMAL APPEARANCE (NORMAL); REACTIVE LYMPHS % (MANUAL) 12 %
[2020-07-15 12:32] LABS: IMMUNOGLOBULIN A 232 mg/dL (47-310); IMMUNOGLOBULIN G 1193 mg/dL (600-1640); IMMUNOGLOBULIN M 46 mg/dL (50-300)
[2020-07-16 03:32] LABS: THYROID PEROXIDASE ANTIBODIES 76 IU/mL (<9)
== END 2020-07-11 23:59 | disposition home or self-care (01) ==
LOC: LAB.WCP 08:00
PROVIDERS: ATTEND Internal Medicine
DX: L50.9 Urticaria, unspecified (principal)
CPT/HCPCS: 36415; 80053; 82784; 85025; 86376; 86800